=== PATIENT | male | born 1995 | race Caucasian/White ===

== ENCOUNTER 2025-01-04 17:24 | Observation (INO) | payer OTHER, SELFPAY ==
[2025-01-04 14:51] VITALS: BP 120/81
--- NOTE | 2025-01-04 16:17 | ED.GENMED ---
History of Present Illness
General
Chief Complaint: Vomiting Blood
Source: patient
Exam Limitations: none
Time Seen by Provider: 01/04/25 15:27
History of Present Illness
History of Present Illness:
29-year-old male history of migraines. Presenting with his classic migraine headache this morning. This was followed by forceful vomiting which is not unusual. Second episode of forceful vomiting was associated with bright red blood. Possibly
half a cup. No further episodes. Patient feels at baseline. No history of GI bleed. No anticoagulation I thought
Past History
Past History
ED Past Medical History: Other (She is I when asked where he lives she is pretty alert only last year she is)
ED Past Surgical History: Orthopedic
Phy Exam
Physical Exam
Physical Exam:
GENERAL: Alert and oriented in no apparent distress
EYE: Orbits normal.
NECK: Supple, no significant adenopathy.
ENT: Pharynx without erythema
CARDIAC: Regular rate and rhythm without any obvious murmurs.
LUNGS: Clear breath sounds,normal. No crepitus
ABDOMEN: Soft, minimal epigastric tenderness. No rebound or guarding no mass or hernia
NEUROLOGICAL: Alert and oriented , grossly non-focal
SKIN: Warm and dry, no rash or lesion, no discoloration, skin intact.
MUSCULOSKELETAL: No edema,no deformity.Good color
PSYCH: Normal and appropriate interaction.
Course
Orders/Labs/Results
Orders:
Orders
01/04/25 Dinner
Full Liquids
At Your Request: Full Participation
Does patient need a safe tray?: No
01/04/25 15:49
IV Insert/Care/Rem.- Treatment PRN
Pantoprazole [Protonix IV] 40 mg IV NOW STA
CR Chest - 2 Views Urgent
Comment:
Reason For Exam: mw tear
Pulse Ox/cont/shift [RESP] Stat
Quantity: 1
01/04/25 16:22
Complete Blood Count/With Diff Urgent
Comprehensive Metabolic Panel Urgent
01/04/25 16:23
Type+Screen Urgent
01/04/25 16:57
Ondansetron Injectable [Zofran] 4 mg IV NOW STA
01/04/25 17:03
Admit/Transfer Patient As Directed
Co-Sign Provider:
Level of Care: Observation services
Assign to:: Medical/Surgical
Physician / Group: wily amor
Diagnosis: Hematemesis likely Nirali-Martinez tear, migraine headache/nausea
Code Status As Directed
Resuscitation Status: Full Code
01/04/25 17:04
PRN Pain Medication Management As Directed
May give lesser potent ordered pain med per pt: Yes
preference::
Protocol:: Medication orders for pain may be administered in a
manner that supports deferring to patient preference
when the pt is:
- Requesting an ordered lesser potent pain medication.
Least to most potent pain medications are defined
as: acetaminophen < NSAID < tramadol < opioids
(morphine, oxycodone, hydromorphone).
- Requesting a lesser dose of the same medication IF
ORDERED.
- Requesting a less intrusive route of administration
if both routes are prescribed by the provider (PO <
IV).
01/04/25 18:27
Acetaminophen [Tylenol] 650 mg PO Q4HPRN PRN
Ondansetron Injectable [Zofran] 4 mg IV Q6HPRN PRN
01/04/25 18:27
Activity As Directed
Activity Level: As Tolerated
Advance Diet as Tolerated As Directed
Goal Diet: Regular
Pneumatic Compression Sleeves As Directed
Type: Knee high
Vital Signs As Directed
Frequency: Per unit guidelines
DX Deep Vein Thrombosis Video Routine
01/05/25 05:29
Complete Blood Count/With Diff IN AM
Comprehensive Metabolic Panel IN AM
01/05/25 08:00
Pantoprazole [Protonix IV] 40 mg IV DAILY
Abnormal Lab Results
01/04/25
16:22
MPV 11.4 H fL
(7.4-10.4)
Chloride 108 H mmol/L
(98-107)
Glucose 106 H mg/dl
(70-99)
01/04/25 16:22
01/04/25 16:22
Vital Signs
Initial and Last Documented VS:
Initial Vital Signs
Temp Pulse Resp BP Pulse Ox
98.0 F 90 16 120/81 98
01/04/25 14:51 01/04/25 14:51 01/04/25 14:51 01/04/25 14:51 01/04/25 14:51
Last Documented Vital Signs
Temp Pulse Resp BP Pulse Ox
97.9 F 57 20 95/55 98
01/05/25 07:40 01/05/25 07:40 01/04/25 23:58 01/05/25 07:40 01/05/25 07:40
MDM/Problems Addressed
Differential Diagnosis Includes:
Very high suspicion for Nirali-Martinez tear. Is not describing any more vomiting or melanotic or dark stool however is minimally tachycardic. Discussed with GI. Recommend PPI and observation overnight.
*Radiology
Radiology exam reviewed: preliminary read by ED provider (Negative)
*Pulse Oximetry
SaO2: 98
Oxygen Mode of Delivery: Room air
Patient hypoxic: no
*Critical Care Note
Total Time (30-74mins, 75-104mins- exclusive of procedures): Not Applicable
ED Attending Note
-
Portions of this chart may have been created with voice recognition software.� Occasional wrong word or��sound alike� substitutions may have occurred due to the inherent limitations of voice recognition software.
Discharge Plan
Departure
Patient Disposition: Admit
Date of Disposition: 01/04/25
Time of Disposition: 16:40
Presentation/result/management discussed w/ accepting MD/DO: Hospitalist
Discharge Problem:
Nirali-Martinez tear
Interventions
Interventions:
*Risk Screen - Suicide Last Done: 01/04/25 14:51
*General Assessment Last Done: 01/04/25 16:00
*Neglect/Abuse Screening Last Done: 01/04/25 14:51
*ED COVID-19 Vaccine History Last Done: 01/04/25 16:00
*ED Influenza Vaccine History Last Done: 01/04/25 16:00
*Nursing Disposition Last Done: 01/04/25 18:23
KX-Qacfyk-Esxzzzzmmf Assessment Last Done: 01/04/25 16:00
ED- Cardiac Assessment Last Done: 01/04/25 16:00
ED- Pulmonary Assessment Last Done: 01/04/25 16:00
Discharge Date and Time
Discharge Date/Time: 01/04/25 18:24
[2025-01-04] MEDS: PROTONIX IV 40 MG IV (16:25)
[2025-01-04 16:31] LABS: Hematocrit 41.3 % (39.0-52.0); Hemoglobin 14.4 g/dL (13.0-18.0); Mean Corp Hgb Conc. 34.9 g/dL (33.0-37.0); Mean Corpuscular Volume 87.5 fL (80.0-94.0); Nucleated Red Blood Cells % 0 % (-); Platelet Count 199 10^3/uL (130-400); Red Cell Dist. Width 12.4 % (11.5-14.5)
--- NOTE | 2025-01-04 16:43 | HPS.HSE ---
Addendum entered and electronically signed by Suleiman Oro MD 01/04/25 17:37:
This is an addendum to the H&P written by Donna Darnell on 01/04/2025. �Patient seen and examined independently with CENSUS CLERK.
29-year-old male past medical history of migraines presenting with migraine headache this morning followed by forceful vomiting after having buffalo cheese steak. �Second episode of vomiting was associate with bright red blood possibly half a cup.
�He has had minor spotting of blood from vomiting from prior migraines. �Denies any headache currently.
Vital signs normal.
Labs unremarkable. �Hemoglobin 14.4.
Chest x-ray appears normal, report pending.
Patient with hematemesis associated with migraine likely secondary to Nirali-Martinez tear.� Full liquids, advance as tolerated. Observation overnight, ER spoke with GI who states consultation not necessary if symptoms resolved.
Original Note:
Family Physician
-
Family Physician: * NONE
Chief Complaint
-
Vomited blood during migraine headache
History of Present Illness
29-year-old male complaining of forceful vomiting x 2 with liquid bright red in color vomit mixed with a buffalo chicken cheese steak he had just eaten 5 minutes prior during a migraine headache this morning. He feels as though he vomited half a
cup of blood, however he states he vomited next to a tree it was bright red liquid he did drink water with his buffalo chicken cheese steak 5 minutes prior. He states he typically gets migraines every 2 months that can last up to 3 days along. He
gets severe nausea with it and is unable to take any medication. He did not have insurance until last year I advised him to follow-up with a primary care provider who can provide him antinausea medication during his migraine headaches so that he is
able to take medication for the pain. He reports mild nausea right now but resolution of migraine headache. The patient denies neck pain, fever, chills, chest pain, palpitations, cough, shortness of breath, abdominal pain, diarrhea, black or
bloody stools. He has past medical history of migraine headaches.
Medical History
Past Medical History
Past Medical History: Reports Other
Additional Past Medical History:
Migraine headaches
Past Surgical History: Reports Other
Additional Past Surgical History:
Fracture radius ulna/humerus repair as child when fell out of tree
Social History
Tobacco: Smoker (Reports smokes a pack and a 5-month smokes when he drinks)
Alcohol: Occasional (Drinks once a month)
Employment: Employed
Family History
Family History: Other (Mother history of migraines and DVTs father healthy 2 sisters 1 with POTS)
Allergies / Home Medications
Allergies reflects when Allergies were last updated in [employer].
Home Medications with original date entered in [employer]
Allergy/Medication List:
Allergies
Allergy/AdvReac Type Severity Reaction Status Date / Time
No Known Allergies Allergy Verified 01/04/25 14:52
Home Medications
M.V.I. 1 tab PO DAILY 01/04/25
Review of Systems
-
History Source: Patient
A 12 point ROS was completed and negative except as noted: Yes
Constitutional: Denies Fever or Chills
EENT: Denies Sore Throat or Mouth Swelling
Respiratory: Denies Cough or Trouble Breathing
Cardiac: Denies Chest Pain, Diaphoresis, Palpitations or Syncope
Abdomen/GI: Reports Nausea and Vomiting (Liquid bright red)
: Denies Dysuria, Frequency, Flank Pain or Incontinence
Musculoskeletal: Denies Joint Pain, Joint Swelling or Muscle Pain
Skin: Denies Itching or Rash
Neurological: Reports Headache; Denies Dizzy or Weakness
Endocrine: Reports No Symptoms
Hematologic/Lymphatic: Reports No Symptoms
Psych: Reports Calm
Physical Exam
Vital Signs
Vital Signs
Temp Pulse Resp BP Pulse Ox
98.0 F 90 16 120/81 98
01/04/25 14:51 01/04/25 14:51 01/04/25 14:51 01/04/25 14:51 01/04/25 16:18
Physical Exam
General: Comfortable and Conversant; No Fever or Chills
HEENT: NormoCephalic, Anicteric, Moist mucous membranes, Thrush, PERRLA, [place] Conjunctivae, No Ptosis and Neck Nontender
Respiratory: Clear; No Wheezes, Rales or Rhonchi
Cardiac: S1/S2 and Regular Rhythm; No Murmur, Rub, Gallop or Peripheral Edema
Breast: Deferred by me
GI: Soft, Non Tender, Normal Bowel Sounds and No Hepatosplenomegaly
Rectal: Deferred by Provider
Genito-urinary: Deferred by me
Musculoskeletal: No Clubbing, No Cyanosis and No Edema
Skin: Warm and Dry; No Rash or Jaundice
Neuro: AO x 3, No Motor Deficits, Nonfocal/grossly intact, Cranial Nerves Intact and No Sensory Deficits; No Slurred Speech, Facial Droop, Tremors or Sedated
Psych: Calm
Laboratory Results
-
01/04/25 16:22
Impression/Plan
-
Impression/plan:
Observation MedSurg
#Hematemesis likely Nirali-Martinez tear from forceful vomiting secondary to migraine/nausea
- Hemoglobin stable 14.4
- IV Protonix
- Type and screen obtained in ER
- IV Zofran as needed
#Migraine headache
Typically gets migraines every 2 months lasting 3 days along with severe nausea
-Current headache resolved
- IV Zofran as needed nausea vomiting
- Recommended patient follow-up with a primary care provider and obtain prescription for Zofran for when his headaches occur
DVT prophylaxis
SCDs
Full code
[2025-01-04 16:46] LABS: ALT (SGPT) 37 U/L (0-50); AST (SGOT) 27 U/L (17-59); Albumin 4.7 g/dl (3.5-5.0); Alkaline Phosphatase 58 U/L (38-126); Blood Urea Nitrogen 18 mg/dl (9-20); Calcium 9.6 mg/dl (8.4-10.2); Carbon Dioxide 27 mmol/L (22-30); Chloride 108 mmol/L (98-107); Glucose 106 mg/dl (70-99); Potassium 4.1 mmol/L (3.5-5.1); Sodium 142 mmol/L (135-145); Total Protein 7.3 g/dl (6.3-8.2); eGFR > 60.00
[2025-01-04] MEDS: ZOFRAN 4 MG IV (17:39)
--- NOTE | 2025-01-04 17:43 | EDCM ---
CM reviewed chart and met with pt bedside in ED. Lives with SO in 2 story home, 1 [address].
Independent in ADLs, personal care and ambulation at baseline. No DME.
OBS form reviewed and signed, copy given to pt.
Confirms prescription coverage.
No hx VN or SNF
Does not currently have PCP
[place]: [facility] [place]
Anticipate discharge home, CM will continue to follow.
[2025-01-04 18:12] VITALS: BMI 30.9
--- NOTE | 2025-01-04 18:30 | PTCARENOTE ---
01/04- Patient transferred and oriented to unit without issue. AAOX3, MedSurg. Denies any current complaints or pain.
[2025-01-04 18:33] VITALS: BP 120/71
[2025-01-04 23:58] VITALS: BP 115/75
[2025-01-05 06:08] LABS: Hematocrit 42.6 % (39.0-52.0); Hemoglobin 14.8 g/dL (13.0-18.0); Mean Corp Hgb Conc. 34.7 g/dL (33.0-37.0); Mean Corpuscular Volume 90.4 fL (80.0-94.0); Nucleated Red Blood Cells % 0 % (-); Platelet Count 196 10^3/uL (130-400); Red Cell Dist. Width 12.3 % (11.5-14.5)
[2025-01-05 06:31] LABS: ALT (SGPT) 38 U/L (0-50); AST (SGOT) 24 U/L (17-59); Albumin 4.5 g/dl (3.5-5.0); Alkaline Phosphatase 57 U/L (38-126); Blood Urea Nitrogen 15 mg/dl (9-20); Calcium 9.3 mg/dl (8.4-10.2); Carbon Dioxide 28 mmol/L (22-30); Chloride 108 mmol/L (98-107); Estimated Creatinine Clearance > 125 ml/min; Glucose 95 mg/dl (70-99); Potassium 4.3 mmol/L (3.5-5.1); Sodium 142 mmol/L (135-145); Total Protein 7.1 g/dl (6.3-8.2); eGFR > 60.00
[2025-01-05 07:40] VITALS: BP 95/55
[2025-01-05] MEDS: PROTONIX IV 40 MG IV (08:23)
[2025-01-05] MEDS: NSS (PRESERVATIVE FREE) 10 ML IV (08:23)
--- NOTE | 2025-01-05 09:28 | W.PN.HOSP.TC ---
Today's Communication/Plan
-
Advance diet
Discharge
Assessment / Plan
Assessment / Plan
Gen-AAOx3, NAD
HEENT-NC, AT, anicteric, clear oral mm
Neck-supple
CV-reg, no M, +S1/S2
Lungs-clear B/L
Abd-soft, NT, ND
Ext-no edema
Musculoskeletal-no cyanosis, clubbing
Skin-warm and dry
Neuro-grossly non-focal
Psych-calm, cooperative
Acute upper GI bleed -suspect Nirali-Martinez tear. Nausea and vomiting resolved.
Hemodynamically stable. No evidence of active bleeding. Hemoglobin normal.
Currently on full liquids, advance to solid food.
Offered antiemetics on discharge but patient declined.
History of migraines -suspect trigger is due to inadequate sleep. He has a late bedtime and early rise time. Works 2 jobs.
Tobacco dependence -cessation advised.
Full code
Dispo -discharge today if tolerates diet. Outpatient follow-up.
31-minute spent in discharge process.
Anticipated Discharge: Today
Subjective/Interval History
-
Date of Service: January 05, 2025
Patient seen and examined. No complaints. Denies headache or nausea currently.
Objective Data
-
Labs:
Laboratory Results
01/05/25
05:29
WBC 7.7
Hgb 14.8
Hct 42.6
Plt Count 196
Sodium 142
Potassium 4.3
Chloride 108 H
Carbon Dioxide 28
BUN 15
Creatinine 0.9
Glucose 95
Calcium 9.3
Total Bilirubin 1.2
AST 24
ALT 38
Alkaline Phosphatase 57
Vital Signs:
Vital Signs
Temp Pulse Resp BP Pulse Ox
97.9 F 57 20 95/55 98
01/05/25 07:40 01/05/25 07:40 01/04/25 23:58 01/05/25 07:40 01/05/25 07:40
Review of Systems
-
History Source: Patient
All other systems: Reviewed and negative
--- NOTE | 2025-01-05 09:31 | W.DS.TRANS ---
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
-
Discharge Instructions:
Discharge Diagnosis/Procedures Migraine headache, Nirali-Martinez tear
Diet Regular
Activity As tolerated
Driving Restrictions As prior to admission
Bathing Restrictions None
Instructions:
Stand-Alone Forms:
Changes to Home Medications: No
Discharge Medications:
DC Medications w/original date entered in [employer]
M.V.I. 1 tab PO DAILY Supplement 01/04/25
Home Medication Changes
Pending Results: No
--- NOTE | 2025-01-05 09:34 | CM ---
Chart reviewed and patient is for discharge to home today no needs.
Plan; Home no needs.
[2025-01-05 11:26] VITALS: BP 100/65
== END 2025-01-05 11:33 | disposition home or self-care (01) ==
LOC: 4 WEST ACU 17:24
PROVIDERS: Clinical Nurse Specialist Family Health; ADMITTING PHYSICIAN Hospitalist; ATTENDING PHYSICIAN Hospitalist; EMERGENCY PHYSICIAN Emergency Medicine
DX: K92.0 Hematemesis (principal); K92.2 Gastrointestinal hemorrhage, unspecified; G43.109 Migraine with aura, not intractable, without status migrainosus; F17.200 Nicotine dependence, unspecified, uncomplicated; Z79.899 Other long term (current) drug therapy; Z72.821 Inadequate sleep hygiene
CPT/HCPCS: 71046; 80053; 85025; 86850; 86900; 86901; 94760; 96374; 99285; 99406; G0378